=== PATIENT | female | born 1995 | race Caucasian/White ===

== ENCOUNTER 2017-10-14 15:01 | Emergency (ER) | payer SELFPAY ==
[2017-10-14 15:11] VITALS: BP 121/43
[2017-10-14 17:56] LABS: BUN/Creatinine Ratio 20; Blood Urea Nitrogen 4 mg/dL (7-17); Calcium 8.9 mg/dL (8.4-10.2); Hemolysis Index 35
[2017-10-14 17:59] LABS: Hematocrit 21.4 % (30.3-42.9); Hemoglobin 7.3 gm/dl (10.1-14.3); Mean Corpuscular HGB Conc 34 % (30-34); Mean Corpuscular Hemoglobin 28 pg (28-32); Mean Corpuscular Volume 83 fl (79-97); Platelet Count 630 K/mm3 (140-440); Red Blood Count 2.59 M/mm3 (3.65-5.03)
[2017-10-14 18:00] LABS: Red Cell Distribution Width 32.8 % (13.2-15.2)
[2017-10-14 19:16] LABS: Total Cells Counted 100
[2017-10-14 19:17] LABS: Dimorphic RBC Yes
[2017-10-14 19:19] LABS: Anisocytosis 2+; Large Platelets 1+; Platelet Estimate Appears Increased; Sickle Cells 3+
[2017-10-14 19:21] LABS: Target Cells 1+
--- NOTE | 2017-10-14 19:21 | XRay Report ---
FINAL REPORT PROCEDURE: XR CHEST ROUTINE 2V TECHNIQUE: PA and lateral chest radiographs were obtained. CPT 84853 HISTORY: Shortness of breath. COMPARISON: No prior studies are available for comparison. FINDINGS: Heart: Normal. Mediastinum/Vessels: Normal. Lungs/Pleural space: Moderate diffuse peribronchial thickening. More focal left upper lobe linear opacities. Bony thorax: Mild dextroscoliotic curvature. Other: IMPRESSION: Moderate diffuse peribronchial thickening, consider bronchitis/pneumonitis. Linear opacities in the left upper lobe likely atelectasis, cannot exclude more focal pneumonia.
== END 2017-10-14 18:00 | disposition left against medical advice (07) ==
LOC: ED 15:01
DX: R07.89 Other chest pain (principal); Z53.21 Procedure and treatment not carried out due to patient leaving prior to being seen by health care provider
CPT/HCPCS: 36415; 71046; 80048; 85007; 85025; 85045; 87040; 93005; 93010